=== PATIENT | female | born 1980 ===

== ENCOUNTER 2023-03-06 17:38 | Emergency (ER) | payer BC ==
[2023-03-06 18:48] LABS: CORONAVIRUS COVID-19 NAA NEGATIVE (NEGATIVE); INFLUENZA A NAA NEGATIVE (NEGATIVE); INFLUENZA B NAA NEGATIVE (NEGATIVE); RESPIRATORY SYNCYTIAL VIR NAA NEGATIVE (NEGATIVE)
== END 2023-03-06 20:23 | disposition home or self-care (01) ==
LOC: MW.ED 17:38
DX: J02.9 Acute pharyngitis, unspecified (principal); Z20.822 Contact with and (suspected) exposure to COVID-19
CPT/HCPCS: 0241U; 87651; 99283; 99284